=== PATIENT | male | born 1980 | race Caucasian/White ===

== ENCOUNTER 2016-03-19 22:05 | Emergency (ER) | payer SELFPAY ==
[~2016-03-19] VITALS: Ht 172.7 cm; Wt 79.9 kg
[2016-03-19 22:38] LABS: MCH 31.5 PG (29.0-34.0); MCHC 34.7 G/DL (30.0-36.0); MCV 90.9 FL (86-99); MEAN PLAT.VOLUME 8.8 uM^3 (9.0-12.4); PLATELET COUNT 373 K/uL (156-360); RBC DIS.WIDTH-CV 12.6 % (11.8-14.6); RBC DIS.WIDTH-SD 41.6 % (39-53); RED BLOOD COUNT 4.73 M/uL (4.00-5.50); WHITE BLOOD COUNT 8.6 K/uL (4.1-10.2)
[2016-03-19 22:46] LABS: CHLORIDE 108 mEq/L (99-109); SODIUM 144 mEq/L (136-147)
[2016-03-19 22:48] LABS: GLUCOSE 108 mg/dL (70-99)
[2016-03-19 22:49] LABS: ANION GAP 14 MEQ/L (2-14)
[2016-03-19 22:51] LABS: SERUM ETHYL ALCOHOL 178 mg/dL
[2016-03-19 22:52] LABS: GFR ESTIMATE (CALCULATED) > 59 mL/min/; UREA NITROGEN (BUN) 14 mg/dL (9-23)
[2016-03-19 23:47] LABS: AMPHETAMINE NEGATIVE (500 ng/mL); BARBITURATES NEGATIVE (200 ng/mL); BENZODIAZEPINES NEGATIVE (150 ng/mL); COCAINE NEGATIVE (150 ng/mL); METHADONE NEGATIVE (200 ng/mL); METHAMPHETAMINE NEGATIVE (500 ng/mL); OPIATES (MORPHINE) NEGATIVE (100 ng/mL); OXYCODONE NEGATIVE (100 ng/mL); PHENCYCLIDINE NEGATIVE (25 ng/mL); PROPOXYPHENE NEGATIVE (300 ng/mL); THC CANNABINOIDS NEGATIVE (50 ng/mL); TRICYCLIC ANTIDEPRESSANTS NEGATIVE (300 ng/mL)
[2016-03-19 23:48] LABS: INTERNAL CONTROLS VALID? YES
[2016-03-20 03:07] VITALS: BP 24/88
== END 2016-03-20 03:12 | disposition home or self-care (01) ==
LOC: EME 22:05
PROVIDERS: Emergency Medicine
DX: F32.9 Major depressive disorder, single episode, unspecified (principal); F10.920 Alcohol use, unspecified with intoxication, uncomplicated; F43.21 Adjustment disorder with depressed mood; F14.20 Cocaine dependence, uncomplicated; F17.200 Nicotine dependence, unspecified, uncomplicated; Z88.0 Allergy status to penicillin
CPT/HCPCS: 80048; 85027; 90837; 99281; 99285; G0480

== ENCOUNTER 2017-03-11 00:58 | Inpatient (IN) | payer SELFPAY ==
[~2017-03-11] VITALS: Ht 172.7 cm; Wt 83.0 kg
[2017-03-11 01:27] LABS: HEMOGLOBIN 15.9 G/DL (12.5-16.6); MCH 30.6 PG (29.0-34.0); MCHC 34.6 G/DL (30.0-36.0); MCV 88.5 FL (86-99); PLATELET COUNT 379 K/uL (156-360); RBC DIS.WIDTH-CV 12.5 % (11.8-14.6); RBC DIS.WIDTH-SD 40.7 % (39-53); WHITE BLOOD COUNT 11.9 K/uL (4.1-10.2)
[2017-03-11 01:29] LABS: AMPHETAMINE NEGATIVE (500 ng/mL); BARBITURATES NEGATIVE (200 ng/mL); BENZODIAZEPINES NEGATIVE (150 ng/mL); BUPRENORPHINE NEGATIVE (10 ng/mL); COCAINE PRESUMPTIVE POSITIVE (150 ng/mL); METHADONE NEGATIVE (200 ng/mL); METHAMPHETAMINE NEGATIVE (500 ng/mL); OPIATES (MORPHINE) PRESUMPTIVE POSITIVE (100 ng/mL); OXYCODONE NEGATIVE (100 ng/mL); PHENCYCLIDINE NEGATIVE (25 ng/mL); PROPOXYPHENE NEGATIVE (300 ng/mL); THC CANNABINOIDS NEGATIVE (50 ng/mL); TRICYCLIC ANTIDEPRESSANTS NEGATIVE (300 ng/mL)
[2017-03-11 01:38] LABS: CHLORIDE 105 mEq/L (99-109); POTASSIUM 4.4 mEq/L (3.7-5.4); SODIUM 139 mEq/L (136-147)
[2017-03-11 01:40] LABS: GLUCOSE 83 mg/dL (70-99)
[2017-03-11 01:43] LABS: SERUM ETHYL ALCOHOL 194 mg/dL
[2017-03-11 01:44] LABS: CREATININE 1.2 mg/dL (0.6-1.3); GFR ESTIMATE (CALCULATED) > 59 mL/min/ (58.99-99999)
[2017-03-11 01:45] LABS: UREA NITROGEN (BUN) 18 mg/dL (9-23)
[2017-03-11 10:27] VITALS: BP 118/74
[2017-03-11 11:16] VITALS: BP 118/74
[2017-03-11 15:53] VITALS: BP 102/59
[2017-03-12 07:38] VITALS: BP 107/55
[2017-03-12 16:04] VITALS: BP 139/72
[2017-03-13 07:48] VITALS: BP 112/58
[2017-03-13] MEDS ORDERED: FOLIC ACID1 MG PO (10:05)
[2017-03-13] MEDS ORDERED: BUPROPION HCL100 M1 PO (10:05)
[2017-03-13] MEDS ORDERED: Thiamine,Vitamin B1 PO (10:05)
[2017-03-13] MEDS ORDERED: CLEOCIN300 MG PO (10:06)
== END 2017-03-13 10:43 | disposition home or self-care (01) | DRG 881 ==
LOC: EME 00:58 → EDOF 06:20 → 1WEST 06:20 → EDOF 09:12 → ENRESERV 10:00 → 1WEST 10:25
DX: F32.9 Major depressive disorder, single episode, unspecified (principal); R45.851 Suicidal ideations; F10.229 Alcohol dependence with intoxication, unspecified; Y90.6 Blood alcohol level of 120-199 mg/100 ml; F11.10 Opioid abuse, uncomplicated; F14.90 Cocaine use, unspecified, uncomplicated; K04.7 Periapical abscess without sinus; Z59.0 Homelessness; F17.200 Nicotine dependence, unspecified, uncomplicated
CPT/HCPCS: 80048; 84999; 85027; 90839; 97165 GO; 99281; 99285; G0480